=== PATIENT | female | born 1955 | race Caucasian/White ===

== ENCOUNTER 2016-06-22 14:58 | Emergency (ER) | payer MEDICAID ==
--- NOTE | 2016-06-22 15:05 | ER Document Report ---
ED Medical Screen (RME) - General Stated Complaint: FALL/HEADACHE Notes: 60 yo female from custodial. fell from standing. hit carpeted floor. c/o headache to right temporal scalp. no LOC. no vomiting. no hematoma. A&O x 3 TRAVEL OUTSIDE OF THE [place] IN LAST 30 DAYS: No - Related Data Allergies/Adverse Reactions: morphine [Morphine] Allergy (Intermediate, Verified 08/15/15 08:45) Hives Past Medical History - Past Medical History Cardiac Medical History: Reports: Hx Hypercholesterolemia, Hx Hypertension - MEDICATED Endocrine Medical History: Reports: Hx Diabetes Mellitus Type 2 - borderline Renal/ Medical History: Reports: Hx Kidney Stones GI Medical History: Reports: Hx Gastroesophageal Reflux Disease Musculoskeltal Medical History: Reports Hx Arthritis Psychiatric Medical History: Reports: Hx Depression - anxiety, Hx Schizophrenia Traumatic Medical History: Reports: Hx Fractures - left hip Past Surgical History: Reports: Hx Appendectomy, Hx Cholecystectomy, Hx Hysterectomy, Hx Orthopedic Surgery - L Hip, Toe, Hx Tonsillectomy, Hx Urinary Tract Surgery - bladder sling - Immunizations Hx Diphtheria, Pertussis, Tetanus Vaccination: No
[2016-06-22 15:14] VITALS: BP 130/62
[2016-06-22 17:47] LABS: APPEARANCE,URINE CLEAR; BILIRUBIN,URINE NEGATIVE (NEGATIVE); GLUCOSE, URINE NEGATIVE (NEGATIVE); KETONES,URINE NEGATIVE (NEGATIVE); LEUKOCYTE ESTERASE,URINE NEGATIVE (NEGATIVE); NITRITE,URINE NEGATIVE (NEGATIVE); PROTEIN,URINE NEGATIVE (NEGATIVE); URINE SPECIFIC GRAVITY 1.012; UROBILINOGEN,URINE NEGATIVE mg/dL (<2.0)
[2016-06-22] MEDS ORDERED: ONDANSETRON 4 MG TAB.RAPDIS PO ONE (20:12)
[2016-06-22] MEDS ORDERED: ACETAMINOPHEN 325 MG TABLET PO ONE (20:12)
--- NOTE | 2016-06-22 20:16 | ER Document Report ---
ED Fall - General Chief Complaint: Head Injury without LOC Stated Complaint: FALL/HEADACHE Time seen by provider: 20:10 Notes: Patient is a 60-year-old female that comes emergency department by EMS from [facility] for chief complaint of a mechanical fall. Patient states that she lost her balance, she was not using her walker which she usually ambulates with, she states that she fell forwards, scraped her elbow on the carpet and hit her head. She denies neck pain, loss of consciousness, nausea, vomiting, she states she hurts over her right scalp forehead area, she denies any other areas of pain. She takes aspirin. She denies any focal numbness or weakness. TRAVEL OUTSIDE OF THE [place] IN LAST 30 DAYS: No - Related data Allergies/Adverse Reactions: morphine [Morphine] Allergy (Intermediate, Verified 06/22/16 15:48) Hives Past Medical History - General Information source: Patient, Emergency Med Personnel - Social History Smoking Status: Never Smoker Chew tobacco use (# tins/day): No Frequency of alcohol use: None Drug Abuse: None Lives with: Custodial Family History: Reviewed & Not Pertinent, CAD, Malignancy - Father of brain cancer, Other - Congestive heart failure in her mother who is still living Patient has suicidal ideation: No Patient has homicidal ideation: No - Past Medical History Cardiac Medical History: Reports: Hx Hypercholesterolemia, Hx Hypertension - MEDICATED Endocrine Medical History: Reports: Hx Diabetes Mellitus Type 2 - borderline Renal/ Medical History: Reports: Hx Kidney Stones. Denies: Hx Peritoneal Dialysis GI Medical History: Reports: Hx Gastroesophageal Reflux Disease Musculoskeltal Medical History: Reports Hx Arthritis Psychiatric Medical History: Reports: Hx Depression - anxiety, Hx Schizophrenia Traumatic Medical History: Reports: Hx Fractures - left hip Past Surgical History: Reports: Hx Appendectomy, Hx Cholecystectomy, Hx Hysterectomy, Hx Orthopedic Surgery - L Hip, Toe, Hx Tonsillectomy, Hx Urinary Tract Surgery - bladder sling - Immunizations Hx Diphtheria, Pertussis, Tetanus Vaccination: No Hx Pneumococcal Vaccination: 04/03/10 Review of Systems - Review of Systems Constitutional: No symptoms reported EENT: See HPI Cardiovascular: No symptoms reported Respiratory: No symptoms reported Gastrointestinal: No symptoms reported Genitourinary: No symptoms reported Female Genitourinary: No symptoms reported Musculoskeletal: See HPI Skin: No symptoms reported Hematologic/Lymphatic: No symptoms reported Neurological/Psychological: See HPI Physical Exam - Vital signs Vitals: Temp Pulse Resp BP Pulse Ox 99.3 F 72 20 130/62 H 97 06/22/16 15:13 06/22/16 15:13 06/22/16 15:13 06/22/16 15:13 06/22/16 15:13 Interpretation: Normal - General General appearance: Appears well, Alert In distress: None - Alert and well-appearing - HEENT Head: Normocephalic, Atraumatic - I do not appreciate any contusions, abrasions , or wounds Eyes: Normal Conjunctiva: Normal Extraocular movements intact: Yes Eyelashes: Normal Pupils: PERRL Ears: Normal External canal: Normal Tympanic membrane: Normal Sinus: Normal Nasal: Normal Mouth/Lips: Normal Mucous membranes: Normal Pharynx: Normal Neck: Normal - Respiratory Respiratory status: No respiratory distress Chest status: Nontender Breath sounds: Normal. No: Decreased air movement, Wheezing Chest palpation: Normal - Cardiovascular Rhythm: Regular. No: Tachycardia Heart sounds: Normal auscultation, S1 appreciated, S2 appreciated Murmur: No - Abdominal Inspection: Normal Distension: No distension Bowel sounds: Normal Tenderness: Nontender. No: Tender, Guarding Organomegaly: No organomegaly - Back Back: Normal, Nontender - Extremities General upper extremity: Other - Small abrasion over the left elbow with no tenderness noted on palpation, normal range of motion of the elbow, wrist, arm, neck. Normal examination otherwise. General lower extremity: Normal inspection, Nontender, Normal color, Normal ROM , Normal temperature, Normal weight bearing. 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 Patient is oriented and responds to questions appropriately. No hematoma or signs of significant injury, small abrasion on the elbow with no elbow tenderness and normal range of motion of the elbow, unremarkable spinal exam, normal neurological exam. Patient stating she has some pain in her left arm and shoulder, however she performs full range of motion, no significant point tenderness on exam, patient states she has had this for a long time. CT of the head ordered from triage reviewed and is negative, because of nontender neck on exam I did not add a cervical spine to this. Urinalysis reviewed and unremarkable. Discussed head injury precautions , patient will be discharged back to [id number], patient states understanding and agreement. - Vital Signs Vital signs: Temp Pulse Resp BP Pulse Ox 99.3 F 72 20 130/62 H 97 06/22/16 15:13 06/22/16 15:13 06/22/16 15:13 06/22/16 15:13 06/22/16 15:13 - Laboratory Laboratory results interpreted by me: 06/22/16 17:30 Urine Ascorbic Acid 40 H Discharge - Discharge Clinical Impression: Fall, Head injury, Abrasion of left elbow Condition: Stable Disposition: HOME, SELF-CARE Additional Instructions: Imaging and examination show no concerning abnormality. Use Tylenol for headaches that might occur over the next couple of days, return immediately for any concerning symptoms, see head injury precautions listed below. At this point, there is no evidence that your head injury is serious. Observation is necessary, however. Take only clear liquids for the first few hours, unless told otherwise by the doctor. If no pain medication was prescribed, you may take acetaminophen according to the directions on the bottle. Do not take any medication that may alter your level of alertness (unless you've discussed it with the doctor first) . Limit activity for the first 24 hours. Bed rest is best. During the first 24 hours, check to see approximately every two to three hours that the patient is easily arousable, responds normally, and can perform common tasks such as walking without difficulty. Contact your doctor or go to the hospital if any of the following things occur: Persistent vomiting, difficulty in arousing the patient, worsening or continued headache, or failure to improve as expected. Head injuries can cause symptoms that persist for a few days or even a few weeks.
== END 2016-06-22 21:35 | disposition home or self-care (01) ==
LOC: ER 14:58
DX: S09.90XA Unspecified injury of head, initial encounter (principal); S50.312A Abrasion of left elbow, initial encounter; W19.XXXA Unspecified fall, initial encounter; Y92.129 Unspecified place in nursing home as the place of occurrence of the external cause; E78.00 Pure hypercholesterolemia, unspecified; I10 Essential (primary) hypertension; R73.03 Prediabetes; K21.9 Gastro-esophageal reflux disease without esophagitis; Z79.82 Long term (current) use of aspirin; Z87.442 Personal history of urinary calculi; Z90.49 Acquired absence of other specified parts of digestive tract; Z90.710 Acquired absence of both cervix and uterus
CPT/HCPCS: 99285; 81001; 70450; J3490; S0119

== ENCOUNTER 2017-01-01 22:33 | Emergency (ER) | payer MEDICAID ==
[2017-01-01 22:55] VITALS: BP 137/62
--- NOTE | 2017-01-01 23:11 | ER Document Report ---
HPI - HPI Patient complains to provider of: left nosebleed Onset: Just prior to arrival Onset/Duration: Gone Context: 61 yo female that lives at [facility] due to"can't take care of myself" in by ems for left nosebleed that has already ceased. roommate Reported to ems that she constantly picks at her nose that she denies. No anticoaulants except baby asa daily. Associated Symptoms: None Exacerbated by: Denies Relieved by: Denies - ROS ROS below otherwise negative: Yes Systems Reviewed and Negative: Yes All other systems reviewed and negative - CARDIOVASCULAR Cardiovascular: DENIES: Chest pain - REPRODUCTIVE Reproductive: DENIES: : Past Medical History - General Information source: Patient - Social History Smoking Status: Unknown if Ever Smoked Frequency of alcohol use: None Drug Abuse: None Lives with: Family Family History: Reviewed & Not Pertinent, CAD, Malignancy - Father of brain cancer, Other - Congestive heart failure in her mother who is still living - Past Medical History Cardiac Medical History: Reports: Hx Hypercholesterolemia, Hx Hypertension - MEDICATED Endocrine Medical History: Reports: Hx Diabetes Mellitus Type 2 - borderline Renal/ Medical History: Reports: Hx Kidney Stones. Denies: Hx Peritoneal Dialysis GI Medical History: Reports: Hx Gastroesophageal Reflux Disease Musculoskeltal Medical History: Reports Hx Arthritis Psychiatric Medical History: Reports: Hx Depression - anxiety, Hx Schizophrenia Traumatic Medical History: Reports: Hx Fractures - left hip Past Surgical History: Reports: Hx Appendectomy, Hx Cholecystectomy, Hx Hysterectomy, Hx Orthopedic Surgery - L Hip, Toe, Hx Tonsillectomy, Hx Urinary Tract Surgery - bladder sling - Immunizations Hx Diphtheria, Pertussis, Tetanus Vaccination: No Hx Pneumococcal Vaccination: 04/03/10 Vertical Provider Document - CONSTITUTIONAL Agree With Documented VS: Yes Exam Limitations: No Limitations General Appearance: No Apparent Distress - INFECTION CONTROL TRAVEL OUTSIDE OF THE [place] IN LAST 30 DAYS: No - HEENT HEENT: Normocephalic Notes: inflamed source of bleeding anterior left septum. No septal hematoma. oropharynx old blood that washed away with drinking soda and did not recur - NECK Neck: Supple - RESPIRATORY Respiratory: Breath Sounds Normal, No Respiratory Distress O2 Sat by Pulse Oximetry: 97 - CARDIOVASCULAR Cardiovascular: Regular Rate, Regular Rhythm - NEURO Level of Consciousness: Awake, Alert, Appropriate - DERM Integumentary: Warm, Dry Course - Vital Signs Vital signs: Temp Pulse Resp BP Pulse Ox 98.3 F 72 16 137/62 H 97 01/01/17 22:54 01/01/17 22:54 01/01/17 22:54 01/01/17 22:54 01/01/17 22:54 Discharge - Discharge Clinical Impression: left anterior nosebleed-ceased Condition: Good Disposition: HOME, SELF-CARE Instructions: Nosebleed Instructions (OM) Additional Instructions: do not pick your nose or blow your nose tonight return to [facility] to er any concerns Referrals: RHONDA SANDERS PA-C [Primary Care Provider] - Follow up as needed
== END 2017-01-02 00:05 | disposition home or self-care (01) ==
LOC: ER 22:33
DX: R04.0 Epistaxis (principal)
CPT/HCPCS: 99284

== ENCOUNTER 2017-01-14 13:32 | Emergency (ER) | payer MEDICAID ==
--- NOTE | 2017-01-14 14:08 | ER Document Report ---
ED Seizure - General Mode of Arrival: Medic Information source: Patient <AMALIA APODACA - Last Filed: 01/14/17 14:06> <KELLI GONZALEZ - Last Filed: 01/14/17 15:33> - General Stated Complaint: FALL LEG PAIN Time Seen by Provider: 01/14/17 13:41 Notes: Patient is a 61-year-old female who presents to the emergency department today secondary to a fall occurred at her assisted living facility. Patient complains of right knee pain, left shoulder pain, right shoulder pain, and posterior head pain. Patient denies any symptoms prior to the fall, it appears that this was a mechanical fall. (CONSTANZAAMALIA) - Related Data Allergies/Adverse Reactions: morphine [Morphine] Allergy (Intermediate, Verified 01/14/17 14:29) Hives Past Medical History - General Information source: Patient - Social History Smoking Status: Unknown if Ever Smoked Cigarette use (# per day): No Frequency of alcohol use: None Drug Abuse: None Lives with: Family Family History: Reviewed & Not Pertinent, CAD, Malignancy - Father of brain cancer, Other - Congestive heart failure in her mother who is still living - Past Medical History Cardiac Medical History: Reports: Hx Hypercholesterolemia, Hx Hypertension - MEDICATED Endocrine Medical History: Reports: Hx Diabetes Mellitus Type 2 - borderline Renal/ Medical History: Reports: Hx Kidney Stones. Denies: Hx Peritoneal Dialysis GI Medical History: Reports: Hx Gastroesophageal Reflux Disease. Denies: Hx Pancreatitis Musculoskeltal Medical History: Reports Hx Arthritis Psychiatric Medical History: Reports: Hx Depression - anxiety, Hx Schizophrenia Traumatic Medical History: Reports: Hx Fractures - left hip Past Surgical History: Reports: Hx Appendectomy, Hx Cholecystectomy, Hx Hysterectomy, Hx Orthopedic Surgery - L Hip, Toe, Hx Tonsillectomy, Hx Urinary Tract Surgery - bladder sling - Immunizations Hx Diphtheria, Pertussis, Tetanus Vaccination: No Hx Pneumococcal Vaccination: 04/03/10 <AMALIA APODACA - Last Filed: 01/14/17 14:06> Review of Systems - Review of Systems Constitutional: No symptoms reported EENT: No symptoms reported Cardiovascular: No symptoms reported Respiratory: No symptoms reported Gastrointestinal: No symptoms reported Genitourinary: No symptoms reported Female Genitourinary: No symptoms reported Musculoskeletal: See HPI, Joint pain - Right knee, left shoulder, right shoulder Skin: No symptoms reported Hematologic/Lymphatic: No symptoms reported Neurological/Psychological: No symptoms reported -: Yes All other systems reviewed and negative <AMALIA APODACA - Last Filed: 01/14/17 14:06> Physical Exam <AMALIA APODACA - Last Filed: 01/14/17 14:06> <KELLI GONZALEZ - Last Filed: 01/14/17 15:33> - Vital signs Vitals: Temp Pulse Resp BP Pulse Ox 98.4 F 79 18 127/62 H 99 01/14/17 13:40 01/14/17 13:40 01/14/17 13:40 01/14/17 13:40 01/14/17 13:40 - Notes Notes: Physical Exam: General: Alert, appears well. HEENT: Normocephalic. Right posterior parietal hematoma. PERRL. Extraocular movements intact. Oropharynx clear. Neck: Supple. Non-tender. Respiratory: No respiratory distress. Clear and equal breath sounds bilaterally. Cardiovascular: Regular rate and rhythm. Abdominal: Normal Inspection. Non-tender. No distension. Normal Bowel Sounds. Back: Non-tender. No deformity or step off. Extremities: Moves all four extremities. Upper extremities: Both shoulders have normal range of motion, no bruising. Lower extremities: Ecchymosis over right patella with mild amount of swelling. Normal ROM. Neurological: Normal cognition. AAOx4. Normal speech. Psychological: Normal affect. Normal Mood. Skin: Warm. Dry. Normal color. (AMALIA APODACA) Course - Diagnostic Test Radiology reviewed: Image reviewed, Reports reviewed - CT of the head shows deep white matter disease with nothing acute. X-ray of the right knee does not show any fractures <KELLI GONZALEZ - Last Filed: 01/14/17 15:33> - Vital Signs Vital signs: Temp Pulse Resp BP Pulse Ox 98.4 F 79 18 127/62 H 99 01/14/17 13:40 01/14/17 13:40 01/14/17 13:40 01/14/17 13:40 01/14/17 13:40 Discharge <AMALIA APODACA - Last Filed: 01/14/17 14:06> <KELLI GONZALEZ - Last Filed: 01/14/17 15:33> - Discharge Clinical Impression: Fall Qualifiers: Encounter type: initial encounter Qualified Code(s): W19.XXXA - Unspecified fall, initial encounter Knee contusion Qualifiers: Encounter type: initial encounter Laterality: right Qualified Code(s): S80.01XA - Contusion of right knee, initial encounter Scalp contusion Qualifiers: Encounter type: initial encounter Qualified Code(s): S00.03XA - Contusion of scalp, initial encounter Condition: Stable Disposition: HOME, SELF-CARE Additional Instructions: Contusion: Your injury has resulted in a contusion -- a crushing of the deep tissues. No injury to important structures was detected during the physician's exam. Contusions vary in the amount of pain they cause, and in the length of time required for healing. Typically, the area will become bruised, and will remain painful to touch for two or three weeks. However, most patients are back to working and playing within a few days. After the initial period of rest and cold-packs, your symptoms (together with the doctor's recommendations) will determine how rapidly you can get back to full activity. Usually this means "do what feels okay, but don't do things that hurt." If re-examination was recommended, it's important to follow up as instructed. Call the doctor or return any time if pain increases, if swelling becomes severe, if you develop numbness or weakness in an injured extremity, or if any other alarming symptoms occur. You appear to have minor contusions to your right parietal scalp region, and right anterior knee. Ice packs to reduce swelling should be helpful. Tylenol for pain should be adequate. Follow-up with your doctor if not improving. RETURN TO THE EMERGENCY ROOM IF ANY NEW OR WORSENING SYMPTOMS. Referrals: RHONDA SANDERS PA-C [Primary Care Provider] - Follow up as needed Scribe Attestation: 01/14/17 15:06 I personally performed the services described in the documentation, reviewed and edited the documentation which was dictated to the scribe in my presence, and it accurately records my words and actions. (KELLI GONZALEZ) Scribe Documentation - Scribe Written by Merlyn:: Merlyn Velazco, 01/14/2017 1408 acting as scribe for :: Kelby <AMALIA APODACA - Last Filed: 01/14/17 14:06>
[2017-01-14 14:49] VITALS: BP 127/62
--- NOTE | 2017-01-14 15:05 | RADIOLOGY REPORT (SQ) ---
EXAM DESCRIPTION: CT HEAD WITHOUT COMPLETED DATE/TIME: 01/14/2017 2:38 pm REASON FOR STUDY: FALL, HIT LEFT PARIETAL HEAD COMPARISON: [address] brain exams since 2006, most recently 06/22/2016 TECHNIQUE: Axial images acquired through the brain without intravenous contrast. Images reviewed wi th bone, brain and subdural windows. Images stored on PACS. All CT scanners at this facility use dose modulation, iterative reconstruction, and/or weight based d osing when appropriate to reduce radiation dose to as low as reasonably achievable (ALARA). [facility]: Dose Right [facility]: CareDose [facility]: Dose Right [facility]: Teradose 4D [facility]: Smart ZIPDIGS RADIATION DOSE: Up-to-date CT equipment and radiation dose reduction techniques were employed. CTDIv ol: 64.6 mGy. DLP: 1034 mGy-cm. mGy. LIMITATIONS: None. FINDINGS: VENTRICLES: Normal size and contour. CEREBRUM: No masses. No hemorrhage. No midline shift. No evidence for acute infarction. Mild deep periventricular chronic small vessel ischemic change in the bifrontal and biparietal white matter CEREBELLUM: No masses. No hemorrhage. No alteration of density. No evidence for acute infarction. EXTRAAXIAL SPACES: No fluid collections. No masses. ORBITS AND GLOBE: No intra- or extraconal masses. Normal contour of globe without masses. CALVARIUM: No fracture. PARANASAL SINUSES: No fluid or mucosal thickening. SOFT TISSUES: No mass or hematoma. OTHER: No other significant finding. IMPRESSION: Mild deep chronic white matter disease. No acute findings. EVIDENCE OF ACUTE STROKE: NO. COMMENT: Quality ID # [id number]: Final reports with documentation of one or more dose reduction techniques (e.g., Automated exposure control, adjustment of the mA and/or kV according to patient size, use of iterative reconstruction technique) TECHNICAL DOCUMENTATION: JOB ID: [id number]- All Rights Reserved
--- NOTE | 2017-01-14 15:07 | RADIOLOGY REPORT (SQ) ---
EXAM DESCRIPTION: KNEE RIGHT 3 VIEWS COMPLETED DATE/TIME: 01/14/2017 2:46 pm REASON FOR STUDY: FALL, HIT R PARIETAL HEAD R KNEE COMPARISON: 12/07/2008 NUMBER OF VIEWS: Three views TECHNIQUE: AP, lateral, and sunrise patella radiographic images acquired of the right knee. LIMITATIONS: None. FINDINGS: MINERALIZATION: Osteoporotic BONES: No acute fracture or dislocation. No worrisome bone lesions. Mild bony spurring at the quadr iceps tendon attachment to the patella JOINT: No effusion. SOFT TISSUES: No soft tissue swelling. No radio-opaque foreign body. OTHER: No other significant finding. IMPRESSION: No acute findings TECHNICAL DOCUMENTATION: JOB ID: [id number] [employer]- All Rights Reserved
== END 2017-01-14 16:15 | disposition home or self-care (01) ==
LOC: ER 13:32
DX: S80.01XA Contusion of right knee, initial encounter (principal); S00.03XA Contusion of scalp, initial encounter; M25.561 Pain in right knee; M25.512 Pain in left shoulder; M25.511 Pain in right shoulder; R51 Headache; W17.89XA Other fall from one level to another, initial encounter; Y92.199 Unspecified place in other specified residential institution as the place of occurrence of the external cause; I10 Essential (primary) hypertension; Z88.5 Allergy status to narcotic agent
CPT/HCPCS: 70450; 99284

== ENCOUNTER 2017-05-07 20:12 | Emergency (ER) | payer MEDICAID ==
[2017-05-07] MEDS ORDERED: NORMAL SALINE 500 ML IV PRN (20:38)
--- NOTE | 2017-05-07 20:40 | ER Document Report ---
ED General - General Stated Complaint: FLU LIKE SYMPTOMS Time Seen by Provider: 05/07/17 20:37 Mode of Arrival: Medic Information source: Transfer Record Notes: This is a 61-year-old female from [facility] that presents to the emergency room with nausea, vomiting, diarrhea, body aches and headache. TRAVEL OUTSIDE OF THE [place] IN LAST 30 DAYS: No - HPI Onset: Last week Onset/Duration: Gradual Quality of pain: Dull Severity: Moderate Pain Level: 1 Associated symptoms: Chills, Diarrhea, Nausea, Vomiting. denies: Fever, Shortness of breath Exacerbated by: Denies Relieved by: Denies Similar symptoms previously: No Recently seen / treated by doctor: No - Related Data Allergies/Adverse Reactions: morphine [Morphine] Allergy (Intermediate, Verified 01/14/17 14:29) Hives Past Medical History - General Information source: Patient - Social History Smoking Status: Never Smoker Cigarette use (# per day): No Chew tobacco use (# tins/day): No Frequency of alcohol use: None Drug Abuse: None Lives with: [facility] Family History: Reviewed & Not Pertinent, CAD, Malignancy - Father of brain cancer, Other - Congestive heart failure in her mother who is still living - Past Medical History Cardiac Medical History: Reports: Hx Hypercholesterolemia, Hx Hypertension - MEDICATED Endocrine Medical History: Reports: Hx Diabetes Mellitus Type 2 - borderline Renal/ Medical History: Reports: Hx Kidney Stones. Denies: Hx Peritoneal Dialysis GI Medical History: Reports: Hx Gastroesophageal Reflux Disease. Denies: Hx Pancreatitis Musculoskeltal Medical History: Reports Hx Arthritis Psychiatric Medical History: Reports: Hx Depression - anxiety, Hx Schizophrenia Traumatic Medical History: Reports: Hx Fractures - left hip Past Surgical History: Reports: Hx Appendectomy, Hx Cholecystectomy, Hx Hysterectomy, Hx Orthopedic Surgery - L Hip, Toe, Hx Tonsillectomy, Hx Urinary Tract Surgery - bladder sling - Immunizations Hx Diphtheria, Pertussis, Tetanus Vaccination: No Hx Pneumococcal Vaccination: 04/03/10 Review of Systems - Review of Systems Constitutional: Chills. denies: Fever EENT: No symptoms reported Cardiovascular: No symptoms reported Respiratory: No symptoms reported Gastrointestinal: See HPI Genitourinary: No symptoms reported Female Genitourinary: No symptoms reported Musculoskeletal: No symptoms reported Skin: No symptoms reported Hematologic/Lymphatic: No symptoms reported Neurological/Psychological: Headaches Physical Exam - Vital signs Vitals: Resp Pulse Ox 22 H 95 05/07/17 20:19 05/07/17 20:19 Notes: Physical exam: GENERAL: 61-year-old female, alert and oriented 3, no acute distress HEAD: Atraumatic, normocephalic. EYES: Pupils equal round and reactive to light, extraocular movements intact, sclera anicteric, conjunctiva are normal. ENT: TMs normal, nares patent, oropharynx clear without exudates. Moist mucous membranes. NECK: Normal range of motion, supple without obvious mass or JVD. LUNGS: Breath sounds clear to auscultation bilaterally and equal. No wheezes rales or rhonchi. HEART: Regular rate and rhythm without murmurs, rubs or gallops. ABDOMEN: Soft, normoactive bowel sounds. No tenderness to palpation. No guarding, no rebound. No masses appreciated. EXTREMITIES: Normal range of motion, no pitting or edema. No clubbing or cyanosis. NEUROLOGICAL: Patient is alert and answering questions, neck supple, negative Brudzinski's, negative Kernig's, no photophobia. PSYCH: Normal mood, normal affect. SKIN: Warm, Dry, normal turgor, no rashes or lesions noted. Course - Vital Signs Vital signs: Temp Pulse Resp BP Pulse Ox 99.7 F 22 H 137/73 H 95 05/07/17 20:20 05/07/17 20:19 05/07/17 20:20 05/07/17 20:20 - Laboratory Result Diagrams: 05/07/17 20:50 05/07/17 20:50 Laboratory results interpreted by me: 05/07/17 05/07/17 05/07/17 20:50 20:50 22:09 Monocytes % 15.5 H Sodium 133.1 L Chloride 97 L Calcium 10.5 H AST 109 H ALT 94 H Ur Leukocyte Esterase TRACE H Urine Ascorbic Acid 40 H - Diagnostic Test Radiology reviewed: Image reviewed, Reports reviewed - Chest x-ray shows no infiltrates or effusions Discharge - Discharge Clinical Impression: UTI Condition: Stable Disposition: HOME, SELF-CARE Instructions: Urinary Tract Infection ([facility]) Additional Instructions: Urine analysis showed that you have an early urinary infection. You were given IV ceftriaxone in the emergency room and I am going to prescribe some Keflex over the next several days. I will also prescribe some Zofran for nausea. Your flu studies were negative. Your chemistry showed normal electrolytes, good kidney function and look good. Her other blood counts were within reasonable range of normal. Follow-up with your primary care doctor Return to the ER if you have persistent vomiting, worsening headache, fever ( greater than 100.4) or any concerns or getting worse. Prescriptions: Cephalexin Monohydrate [Keflex 500 mg Capsule] 500 mg PO Q6H 5 Days capsule Ondansetron HCl [Zofran 4 mg Tablet] 1 - 2 tab PO Q4H PRN #10 tablet PRN Reason: Referrals: RHONDA SANDERS PA-C [Primary Care Provider] - Follow up as needed
[2017-05-07 20:50] LABS: A TYPE INFLUENZA AG NEGATIVE (NEGATIVE); B INFLUENZA AG NEGATIVE (NEGATIVE)
[2017-05-07] MEDS ORDERED: ONDANSETRON HCL INJ/PF 4 MG/2 ML SDV ONE (20:58)
[2017-05-07 21:08] LABS: ABSOLUTE EOSINOPHILS # (AUTO) 0.1 10^3/uL (0.0-0.6); ABSOLUTE LYMPHOCYTES (AUTO) 1.1 10^3/uL (0.5-4.7); ABSOLUTE NEUT (AUTO) 4.1 10^3/uL (1.7-8.2); BASOPHILS % (AUTO) 0.4 % (0-2); EOSINOPHILS % (AUTO) 2.3 % (0-6); HEMATOCRIT 37.1 % (36.0-47.0); HEMOGLOBIN 12.8 g/dL (12.0-15.5); MEAN CORPUSCULAR HEMOGLOBIN 31.2 pg (27.0-33.4); MEAN CORPUSCULAR HGB CONC 34.6 g/dL (32.0-36.0); MEAN CORPUSCULAR VOLUME 90 fl (80-97); MONOCYTES % (AUTO) 15.5 % (3-13); PLATELET COUNT 161 10^3/uL (150-450); RED BLOOD COUNT 4.11 10^6/uL (3.72-5.28); RED CELL DISTRIBUTION WIDTH 13.4 % (11.5-14.0); SEGMENTED NEUTROPHILS % (AUTO) 64.8 % (42-78); TOTAL CELLS COUNTED % (AUTO) 100 %; WHITE BLOOD COUNT 6.3 10^3/uL (4.0-10.5)
--- NOTE | 2017-05-07 21:13 | RADIOLOGY REPORT (SQ) ---
EXAM DESCRIPTION: CHEST SINGLE VIEW COMPLETED DATE/TIME: 05/07/2017 8:58 pm REASON FOR STUDY: cough COMPARISON: 01/31/2016 EXAM PARAMETERS: NUMBER OF VIEWS: One view. TECHNIQUE: Single frontal radiographic view of the chest acquired. RADIATION DOSE: NA LIMITATIONS: None. FINDINGS: LUNGS AND PLEURA: No opacities, masses or pneumothorax. No pleural effusion. MEDIASTINUM AND HILAR STRUCTURES: No masses. Contour normal. HEART AND VASCULAR STRUCTURES: Heart normal in size. Normal vasculature. BONES: No acute findings. HARDWARE: None in the chest. OTHER: No other significant finding. IMPRESSION: NO ACUTE RADIOGRAPHIC FINDING IN THE CHEST. TECHNICAL DOCUMENTATION: JOB ID: [id number] [employer]- All Rights Reserved
[2017-05-07 21:24] LABS: ALANINE AMINOTRANSFERASE 94 U/L (9-52); ALBUMIN 4.5 g/dL (3.5-5.0); ALKALINE PHOSPHATASE 62 U/L (38-126); ANION GAP 12 (5-19); ASPARTATE AMINO TRANSFERASE 109 U/L (14-36); BILIRUBIN,DIRECT 0.1 mg/dL (0.0-0.4); BILIRUBIN,TOTAL 0.3 mg/dL (0.2-1.3); BLOOD UREA NITROGEN 16 mg/dL (7-20); CALCIUM 10.5 mg/dL (8.4-10.2); CARBON DIOXIDE 24 mmol/L (22-30); CHLORIDE 97 mmol/L (98-107); GLUCOSE 108 mg/dL (75-110); POTASSIUM 4.7 mmol/L (3.6-5.0); SODIUM 133.1 mmol/L (137-145); TOTAL PROTEIN 7.7 g/dL (6.3-8.2)
[2017-05-07] MEDS ORDERED: METOCLOPRAMIDE HCL INJ/PF 10 MG/2 ML SDV IV ONE (22:24)
[2017-05-07] MEDS ORDERED: DIPHENHYDRAMINE HCL 50 MG/ML VIAL IV ONE (22:24)
[2017-05-07] MEDS ORDERED: KETOROLAC TROMETHAMINE INJ/PF 30 MG/1 ML SDV IV ONE (22:25)
[2017-05-07 22:59] LABS: BILIRUBIN,URINE NEGATIVE (NEGATIVE); COLOR,URINE YELLOW; GLUCOSE, URINE NEGATIVE (NEGATIVE); KETONES,URINE NEGATIVE (NEGATIVE); LEUKOCYTE ESTERASE,URINE TRACE (NEGATIVE); NITRITE,URINE NEGATIVE (NEGATIVE); PROTEIN,URINE NEGATIVE (NEGATIVE); UROBILINOGEN,URINE NEGATIVE mg/dL (<2.0)
[2017-05-07 23:00] LABS: APPEARANCE,URINE CLEAR
[2017-05-07] MEDS ORDERED: CEFTRIAXONE 1 GM/D5W RTU 1 GM/50 ML RTUPB IV ONE (23:21)
[2017-05-07] MEDS ORDERED: CEFTRIAXONE INJ 1000 MG VIAL ONE (23:40)
[2017-05-08 00:33] VITALS: BP 122/74
== END 2017-05-08 01:00 | disposition home or self-care (01) ==
LOC: ER 20:12
DX: N39.0 Urinary tract infection, site not specified (principal); R11.2 Nausea with vomiting, unspecified; R19.7 Diarrhea, unspecified; M79.1 Myalgia; R51 Headache
CPT/HCPCS: 99285; 96361; 51701; 96375; 96365; 36415; 87086; 85025; 87088; 80053; 81001; 87186; 87804; 71045; J1200; J1885; J2765; J0696; J2405; J7040

== ENCOUNTER → 2017-07-12 | Outpatient (CLI) | payer MEDICAID ==
[2017-07-12 12:53] LABS: HEMATOCRIT 39.8 % (36.0-47.0); HEMOGLOBIN 13.5 g/dL (12.0-15.5); MEAN CORPUSCULAR HEMOGLOBIN 31.1 pg (27.0-33.4); MEAN CORPUSCULAR VOLUME 92 fl (80-97); PLATELET COUNT 170 10^3/uL (150-450); RED BLOOD COUNT 4.34 10^6/uL (3.72-5.28); WHITE BLOOD COUNT 7.9 10^3/uL (4.0-10.5)
[2017-07-12 13:06] LABS: APPEARANCE,URINE CLEAR; BILIRUBIN,URINE NEGATIVE (NEGATIVE); COLOR,URINE YELLOW; GLUCOSE, URINE NEGATIVE (NEGATIVE); KETONES,URINE NEGATIVE (NEGATIVE); LEUKOCYTE ESTERASE,URINE NEGATIVE (NEGATIVE); NITRITE,URINE NEGATIVE (NEGATIVE); PROTEIN,URINE NEGATIVE (NEGATIVE); UROBILINOGEN,URINE NEGATIVE mg/dL (<2.0)
[2017-07-12 13:07] LABS: ANION GAP 12 (5-19); BLOOD UREA NITROGEN 22 mg/dL (7-20); CALCIUM 10.3 mg/dL (8.4-10.2); CARBON DIOXIDE 29 mmol/L (22-30); CHLORIDE 98 mmol/L (98-107); GLUCOSE 96 mg/dL (75-110)
[2017-07-12 13:35] LABS: UR PRO/CREAT RATIO RESULT 0.1 mg/mg (0.0-0.2); URINE CREATININE 76.2 mg/dL (15-278); URINE PROTEIN 5.2 mg/dL (<12)
== END ==
LOC: OD 11:24
PROVIDERS: ATTEND Internal Medicine Nephrology
DX: R80.9 Proteinuria, unspecified (principal); I10 Essential (primary) hypertension; E87.1 Hypo-osmolality and hyponatremia
CPT/HCPCS: 36415; 80048; 81001; 82570; 84156; 85027

== ENCOUNTER → 2018-01-02 | Outpatient (CLI) | payer MEDICAID ==
--- NOTE | 2018-01-02 13:47 | XCELERA REPORT ---
[address] [address] Lower Extremity Arterial Evaluation Name: RADHA WETZEL Age: 62 yrs Gender: Female : 1955 Patient Status: Outpatient Patient Location: Study Date: 01/02/2018 11:12 AM Procedure: A color flow and duplex scan of the lower extremity arteries was performed bilaterally with velocity and waveform anaylsis. Ankle brachial indicies performed. Reason For Study: ULCER Ordering Physician: MARGARITA HUBBARD Performed By: Dylan Hayes Measurements and Calculations Right Left ENGRAVER WOOD PSV 150.2 143.8 cm/sec Prox PFA PSV -99.8 78.2 cm/sec Prox SFA PSV 148.5 122.2 cm/sec Mid SFA PSV -116.3 -103.1cm/sec Dist SFA PSV -122.2 -122.6cm/sec Prox Pop A PSV 126.3 104.2 cm/sec Dist CASSIDY PSV 106.6 104.2 cm/sec Dist KENNEL STAFF MEMBER PSV 81.7 88.8 cm/sec Chung Pedis PSV -103.9 72.3 cm/sec Right Side Arterial Evaluation Normal velocity and triphasic waveforms noted from the Common Femoral artery to the infrageniculate vessels. 0% stenosis. Ankle Brachial index is 1.00. Left Side Arterial Evaluation Normal velocity and triphasic waveforms noted from the Common Femoral artery to the infrageniculate vessels. 0% stenosis. Ankle Brachial index is 1.09. Interpretation Summary No hemodynamically significant lesions in the bilateral lower extremities, on duplex imaging, at rest. JAZZMINE's are within normal range. : MARGARITA HUBBARD > Reyes Pimentel
== END ==
LOC: SP 10:59
PROVIDERS: ATTEND Preventive Medicine Undersea and Hyperbaric Medicine
DX: L97.412 Non-pressure chronic ulcer of right heel and midfoot with fat layer exposed (principal)
CPT/HCPCS: 93922; 93925

== ENCOUNTER 2018-03-13 15:18 | Emergency (ER) | payer MEDICAID ==
--- NOTE | 2018-03-13 16:01 | ER Document Report ---
ED GI/ - General Chief Complaint: Flank Pain Stated Complaint: LEFT SIDE PAIN Time Seen by Provider: 03/13/18 15:29 Notes: 62-year-old female to the emergency department for evaluation of left lower quadrant/left flank pain and left hip pain. States symptoms have been present for 1 month. Was sent in today by the nurse that does visits at the [facility]. Denies any fever, chills, sweats. No burning with urination. Nothing seems to make it better or worse. TRAVEL OUTSIDE OF THE [place] IN LAST 30 DAYS: No - HPI Patient complains to provider of: Abdominal pain, Flank pain Timing/Duration: Gradual, Constant Quality of pain: Achy Severity at maximum: Moderate Severity in ED: Moderate Location: LUQ, Left flank Vaginal bleeding (Compared to normal period): None - Related Data Allergies/Adverse Reactions: morphine [Morphine] Allergy (Intermediate, Verified 03/13/18 15:41) Hives Past Medical History - General Information source: Patient, [facility] Records - Social History Smoking Status: Never Smoker Chew tobacco use (# tins/day): No Frequency of alcohol use: None Lives with: Prison Family History: Reviewed & Not Pertinent, CAD, Malignancy, Other Patient has suicidal ideation: No Patient has homicidal ideation: No - Past Medical History Cardiac Medical History: Reports: Hx Hypercholesterolemia, Hx Hypertension - MEDICATED Endocrine Medical History: Reports: Hx Diabetes Mellitus Type 2 Renal/ Medical History: Reports: Hx Kidney Stones. Denies: Hx Peritoneal Dialysis GI Medical History: Reports: Hx Gastroesophageal Reflux Disease Musculoskeletal Medical History: Reports Hx Arthritis Psychiatric Medical History: Reports: Hx Depression - anxiety, Hx Schizophrenia Traumatic Medical History: Reports: Hx Fractures - left hip Past Surgical History: Reports: Hx Appendectomy, Hx Cholecystectomy, Hx Hysterectomy, Hx Orthopedic Surgery - L Hip, Toe, Hx Tonsillectomy, Hx Urinary Tract Surgery - bladder sling - Immunizations Hx Diphtheria, Pertussis, Tetanus Vaccination: No Hx Pneumococcal Vaccination: 04/03/10 Review of Systems - Review of Systems Notes: Constitutional: denies: Chills, Diaphoresis, Fever, Malaise, Weakness EENT: denies: Eye discharge, Blurred vision, Tearing, Double vision, Nose congestion, Nose discharge, Throat swelling, Mouth pain Cardiovascular: denies: Palpitations, Heart racing, Orthopnea, Dyspnea, Chest pain Respiratory: denies: Cough, Hurts to breathe, Wheezing, Shortness of breath Gastrointestinal: Complaining of left flank pain and left lower quadrant abdominal pain. Genitourinary: denies: Burning, Dysuria, Discharge, Frequency, Flank pain, Hematuria Musculoskeletal: denies: Joint pain, Joint swelling, Muscle pain, Muscle stiffness, back pain Hematologic/Lymphatic: denies: Anemia, Easy bleeding, Easy bruising, Blood clots Neurological/Psychological: denies: Confusion, Dementia, Depression, Loss of consciousness Skin: No lesions, no masses, no skin breakdown, no abscesses Physical Exam - Vital signs Vitals: Temp Pulse BP Pulse Ox 98.5 F 81 138/73 H 98 03/13/18 15:27 03/13/18 15:27 03/13/18 15:27 03/13/18 15:27 Interpretation: Normal - General General appearance: Appears well, Alert - HEENT Head: Normocephalic, Atraumatic Eyes: Normal Pupils: PERRL - Respiratory Respiratory status: No respiratory distress Chest status: Nontender Breath sounds: Normal Chest palpation: Normal - Cardiovascular Rhythm: Regular Heart sounds: Normal auscultation Murmur: No - Abdominal Inspection: Normal Distension: No distension Bowel sounds: Normal Tenderness: Tender - Mild tenderness to the left lower quadrant with deep palpation but no guarding or rebound. No abdominal distention Organomegaly: No organomegaly - Back Back: Normal, Nontender - Extremities General upper extremity: Normal inspection, Nontender, Normal color, Normal ROM , Normal temperature General lower extremity: Normal inspection, Nontender, Normal color, Normal ROM , Normal temperature, Normal weight bearing. No: Fabian's sign - Neurological Neuro grossly intact: Yes Cognition: Normal Orientation: AAOx4 [place] Coma Scale Eye Opening: Spontaneous Yovanny Coma Scale Verbal: Oriented Yovanny Coma Scale Motor: Obeys Commands [place] Coma Scale Total: 15 Speech: Normal Motor strength normal: LUE, RUE, LLE, RLE Sensory: Normal - Psychological Associated symptoms: Normal affect, Normal mood - Skin Skin Temperature: Warm Skin Moisture: Dry Skin Color: Normal Course - Re-evaluation Re-evalutation: 03/13/18 17:37 Laboratory 03/13/18 03/13/18 03/13/18 15:39 16:10 16:10 WBC 7.8 RBC 4.26 Hgb 13.1 Hct 37.6 MCV 88 MCH 30.7 MCHC 34.8 RDW 13.8 Plt Count 172 Seg Neutrophils % 51.6 Lymphocytes % 35.0 Monocytes % 10.2 Eosinophils % 2.7 Basophils % 0.5 Absolute Neutrophils 4.0 Absolute Lymphocytes 2.7 Absolute Monocytes 0.8 Absolute Eosinophils 0.2 Absolute Basophils 0.0 Sodium 135.4 L Potassium 4.7 Chloride 97 L Carbon Dioxide 26 Anion Gap 12 BUN 15 Creatinine 0.36 L Est GFR ( Amer) > 60 Est GFR (Non-Af Amer) > 60 Glucose 119 H Calcium 9.9 Total Bilirubin 0.2 Direct Bilirubin 0.2 Neonat Total Bilirubin Not Reportable Neonat Direct Bilirubin Not Reportable Neonat Indirect Bili Not Reportable AST 46 H ALT 51 Alkaline Phosphatase 123 Total Protein 7.5 Albumin 4.2 Lipase 262.9 Urine Color YELLOW Urine Appearance CLEAR Urine pH 6.0 Ur Specific [place] 1.006 Urine Protein NEGATIVE Urine Glucose (UA) NEGATIVE Urine Ketones NEGATIVE Urine Blood NEGATIVE Urine Nitrite NEGATIVE Urine Bilirubin NEGATIVE Urine Urobilinogen NEGATIVE Ur Leukocyte Esterase NEGATIVE Urine WBC (Auto) 2 Urine RBC (Auto) 1 Urine Mucus (Auto) RARE Urine Ascorbic Acid 20 H Abdomen/Pelvis CT 03/13/18 16:01 IMPRESSION: 1. NO SIGNIFICANT OR ACUTE PROCESS IN THE ABDOMEN OR PELVIS. 2. The previously demonstrated hypoattenuated area in the lower pole of the right kidney on the examination dated 10/24/2017 is not identified on the current noncontrast study. Labs are unremarkable. CT scan unremarkable. Uncertain etiology of her flank pain. Was advised that she get outpatient workup and follow-up at this time. - Vital Signs Vital signs: Temp Pulse Resp BP Pulse Ox 98.5 F 81 138/73 H 98 03/13/18 15:27 03/13/18 15:27 03/13/18 15:27 03/13/18 15:27 - Laboratory Result Diagrams: 03/13/18 16:10 03/13/18 16:10 Laboratory results interpreted by me: 03/13/18 03/13/18 15:39 16:10 Sodium 135.4 L Chloride 97 L Creatinine 0.36 L Glucose 119 H AST 46 H Urine Ascorbic Acid 20 H Discharge - Discharge Clinical Impression: Left lower quadrant abdominal pain of unknown etiology Condition: Good Disposition: HOME, SELF-CARE Instructions: Abdominal Pain ([facility]), Flank Pain ([facility]) Additional Instructions: Please follow-up with your regular provider for further evaluation as the workup today was unremarkable. If your symptoms are getting worse over the next 24 hours please return for repeat evaluation. Referrals: RHONDA SANDERS PA-C [Primary Care Provider] - Follow up as needed
[2018-03-13 16:04] LABS: APPEARANCE,URINE CLEAR; BILIRUBIN,URINE NEGATIVE (NEGATIVE); COLOR,URINE YELLOW; GLUCOSE, URINE NEGATIVE (NEGATIVE); KETONES,URINE NEGATIVE (NEGATIVE); LEUKOCYTE ESTERASE,URINE NEGATIVE (NEGATIVE); NITRITE,URINE NEGATIVE (NEGATIVE); PROTEIN,URINE NEGATIVE (NEGATIVE); URINE SPECIFIC GRAVITY 1.006; UROBILINOGEN,URINE NEGATIVE mg/dL (<2.0)
[2018-03-13 16:17] LABS: ABSOLUTE EOSINOPHILS # (AUTO) 0.2 10^3/uL (0.0-0.6); ABSOLUTE LYMPHOCYTES (AUTO) 2.7 10^3/uL (0.5-4.7); ABSOLUTE MONOCYTES (AUTO) 0.8 10^3/uL (0.1-1.4); BASOPHILS % (AUTO) 0.5 % (0-2); EOSINOPHILS % (AUTO) 2.7 % (0-6); HEMATOCRIT 37.6 % (36.0-47.0); HEMOGLOBIN 13.1 g/dL (12.0-15.5); MEAN CORPUSCULAR HEMOGLOBIN 30.7 pg (27.0-33.4); MEAN CORPUSCULAR HGB CONC 34.8 g/dL (32.0-36.0); MEAN CORPUSCULAR VOLUME 88 fl (80-97); MONOCYTES % (AUTO) 10.2 % (3-13); PLATELET COUNT 172 10^3/uL (150-450); RED BLOOD COUNT 4.26 10^6/uL (3.72-5.28); RED CELL DISTRIBUTION WIDTH 13.8 % (11.5-14.0); SEGMENTED NEUTROPHILS % (AUTO) 51.6 % (42-78); TOTAL CELLS COUNTED % (AUTO) 100 %; WHITE BLOOD COUNT 7.8 10^3/uL (4.0-10.5)
[2018-03-13 16:35] LABS: ALANINE AMINOTRANSFERASE 51 U/L (9-52); ALBUMIN 4.2 g/dL (3.5-5.0); ALKALINE PHOSPHATASE 123 U/L (38-126); ANION GAP 12 (5-19); ASPARTATE AMINO TRANSFERASE 46 U/L (14-36); BILIRUBIN,DIRECT 0.2 mg/dL (0.0-0.4); BILIRUBIN,TOTAL 0.2 mg/dL (0.2-1.3); BLOOD UREA NITROGEN 15 mg/dL (7-20); CALCIUM 9.9 mg/dL (8.4-10.2); CARBON DIOXIDE 26 mmol/L (22-30); CHLORIDE 97 mmol/L (98-107); GLUCOSE 119 mg/dL (75-110); LIPASE 262.9 U/L (23-300); POTASSIUM 4.7 mmol/L (3.6-5.0); SODIUM 135.4 mmol/L (137-145); TOTAL PROTEIN 7.5 g/dL (6.3-8.2)
--- NOTE | 2018-03-13 16:48 | RADIOLOGY REPORT (SQ) ---
EXAM DESCRIPTION: CT ABD/PELVIS NO ORAL OR IV COMPLETED DATE/TIME: 03/13/2018 4:25 pm REASON FOR STUDY: left flank pain COMPARISON: 10/24/2017 TECHNIQUE: CT scan of the abdomen and pelvis performed without intravenous or oral contrast. Images reviewed with lung, soft tissue, and bone windows. Reconstructed coronal and sagittal MPR images revi ewed. All images stored on PACS. All CT scanners at this facility use dose modulation, iterative reconstruction, and/or weight based d osing when appropriate to reduce radiation dose to as low as reasonably achievable (ALARA). [facility]: Dose Right [facility]: CareDose [facility]: Dose Right [facility]: Teradose 4D [facility]: Smart MindOps RADIATION DOSE: CT Rad equipment meets quality standard of care and radiation dose reduction techniq ues were employed. CTDIvol: 12.2 mGy. DLP: 567 mGy-cm. LIMITATIONS: None. FINDINGS: LOWER CHEST: No significant interval changes. NON-CONTRASTED LIVER, SPLEEN, ADRENALS: Evaluation limited by lack of IV contrast. No identified sign ificant masses. PANCREAS: No masses. No peripancreatic inflammatory changes. GALLBLADDER: Prior cholecystectomy. RIGHT KIDNEY AND URETER: The previously demonstrated hypoattenuated area in the lower pole of the ri ght kidney is not visualized on the current study. Assessment limited by lack of IV contrast. No s ignificant calcifications. No hydronephrosis or hydroureter. LEFT KIDNEY AND URETER: No suspicious masses. Assessment limited by lack of IV contrast. No signifi cant calcifications. No hydronephrosis or hydroureter. AORTA AND RETROPERITONEUM: Mild atherosclerotic changes involving the abdominal aorta and branch ves sels. No aneurysm. No retroperitoneal masses or adenopathy. BOWEL AND PERITONEAL CAVITY: Constipation. No free fluid. APPENDIX: Normal. PELVIS, BLADDER, AND ABDOMINAL WALL: Prior hysterectomy. No abnormal masses. No free fluid. Bladder normal. BONES: The osseous structures are stable in appearance. Old remote compression deformities involvin g T12 and L4 vertebrae. OTHER: Small hiatal hernia, stable finding. IMPRESSION: 1. NO SIGNIFICANT OR ACUTE PROCESS IN THE ABDOMEN OR PELVIS. 2. The previously demonstrated hypoattenuated area in the lower pole of the right kidney on the exam ination dated 10/24/2017 is not identified on the current noncontrast study. COMMENT: Quality ID # 436: Final reports with documentation of one or more dose reduction techniques (e.g., Automated exposure control, adjustment of the mA and/or kV according to patient size, use of iterative reconstruction technique) TECHNICAL DOCUMENTATION: JOB ID: [id number] [employer]- All Rights Reserved Reading location - IP/workstation name: [email or web address]
[2018-03-13] MEDS ORDERED: ACETAMINOPHEN 325 MG TABLET PO ONE (17:38)
[2018-03-13 20:49] VITALS: BP 116/69
== END 2018-03-13 20:49 | disposition home or self-care (01) ==
LOC: ER 15:18
DX: R10.32 Left lower quadrant pain (principal); R10.9 Unspecified abdominal pain; M25.552 Pain in left hip; I10 Essential (primary) hypertension; E11.9 Type 2 diabetes mellitus without complications; Z87.442 Personal history of urinary calculi; Z90.49 Acquired absence of other specified parts of digestive tract; Z90.710 Acquired absence of both cervix and uterus; Z88.5 Allergy status to narcotic agent
CPT/HCPCS: 99284; 36415; 83690; 85025; 80053; 81001; 74176; J3490

== ENCOUNTER → 2018-03-19 | Outpatient (CLI) | payer MEDICAID ==
--- NOTE | 2018-03-19 15:44 | WOMENS IMAGING REPORT ---
EXAM DESCRIPTION: BILAT SCREENING MAMMO W/CAD COMPLETED DATE/TIME: 03/19/2018 2:53 pm REASON FOR STUDY: SCREENING MAMMO Z12.31 ENCNTR SCREEN MAMMOGRAM FOR MALIGNANT NEOPLASM OF CLAIRE COMPARISON: 2008 to 2014 TECHNIQUE: Standard craniocaudal and mediolateral oblique views of each breast recorded using digita l acquisition. LIMITATIONS: None. FINDINGS: No masses, calcifications or architectural distortion. No areas of suspicion. Read with the assistance of CAD. .[facility] - R2 Cenova Version 1.3 .[facility] - R2 Cenova Version 1.3 .[facility] - R2 Cenova Version 2.4 .[facility] - R2 Cenova Version 2.4 .[facility] - R2 [employer] Version 9.2 IMPRESSION: NORMAL MAMMOGRAM. BIRADS 1. BREAST DENSITY: b. There are scattered areas of fibroglandular density. BIRAD: 1 NEGATIVE RECOMMENDATION: ROUTINE SCREENING COMMENT: The patient has been notified of the results by letter per MQSA requirements. Additional no tification policies are in place for contacting patient with suspicious or incomplete findings. Quality ID #[id number]: The [employer] recommends an annual screening mammogram for women aged 40 years or over. This facility utilizes a reminder system to ensure that all patients receive reminder letters, and/or direct phone calls for appointments. This includes reminders for routine scr eening mammograms, diagnostic mammograms, or other Breast Imaging Interventions when appropriate. Th is patient will be placed in the appropriate reminder system. The [employer] (ACR) has developed recommendations for screening MRI of the breast s in certain patient populations, to be used in conjunction with mammography. Breast MRI surveillanc e may be appropriate for women with more than 20% lifetime risk of developing breast cancer as deter mined by genetic testing, significant family history of the disease, or history of mantle radiation f or Hodgkins Disease. ACR Practice Guidelines 2008. TECHNICAL DOCUMENTATION: FINDING NUMBER: (1) ASSESSMENT: (1) JOB ID: [id number] [employer]- All Rights Reserved Reading location - IP/workstation name: [email or web address]
== END ==
LOC: WI 14:34
PROVIDERS: ATTEND Physician Assistant
DX: Z12.31 Encounter for screening mammogram for malignant neoplasm of breast (principal)
CPT/HCPCS: 77067